=== PATIENT | female | born 1985 | race Caucasian/White ===

== ENCOUNTER → 2020-02-28 13:45 | Outpatient (BNVA) | payer MEDICAID, SELFPAY | PROVIDERS: Visit Provider Psychiatry & Neurology Psychiatry | DX: F43.12 Post-traumatic stress disorder, chronic (principal); F41.1 Generalized anxiety disorder; F33.2 Major depressive disorder, recurrent severe without psychotic features | CPT/HCPCS: 99204 ==

== ENCOUNTER → 2020-04-10 10:04 | Outpatient (BNVA) | payer MEDICAID, SELFPAY | PROVIDERS: Visit Provider Psychiatry & Neurology Psychiatry | DX: F33.2 Major depressive disorder, recurrent severe without psychotic features (principal); F41.1 Generalized anxiety disorder; F43.12 Post-traumatic stress disorder, chronic | CPT/HCPCS: 99213 ==

== ENCOUNTER → 2020-06-24 12:43 | Outpatient (BNVA) | payer MEDICAID, SELFPAY | PROVIDERS: Visit Provider Psychiatry & Neurology Psychiatry | DX: F33.2 Major depressive disorder, recurrent severe without psychotic features (principal); F41.1 Generalized anxiety disorder; F43.12 Post-traumatic stress disorder, chronic | CPT/HCPCS: 99214 ==

== ENCOUNTER → 2020-08-05 15:33 | Outpatient (BNVA) | payer MEDICAID, SELFPAY | PROVIDERS: Visit Provider Psychiatry & Neurology Psychiatry | DX: F33.2 Major depressive disorder, recurrent severe without psychotic features (principal); F41.1 Generalized anxiety disorder; F43.12 Post-traumatic stress disorder, chronic | CPT/HCPCS: 99214 ==

== ENCOUNTER → 2020-11-06 14:44 | Outpatient (BNVA) | payer OTHER, MEDICAID, SELFPAY | PROVIDERS: Visit Provider Psychiatry & Neurology Psychiatry | DX: F33.2 Major depressive disorder, recurrent severe without psychotic features (principal); F41.1 Generalized anxiety disorder; F43.12 Post-traumatic stress disorder, chronic | CPT/HCPCS: 99214 ==

== ENCOUNTER → 2021-09-16 13:13 | Outpatient (BNVA) | payer OTHER, MEDICAID, SELFPAY | PROVIDERS: Visit Provider Counselor Professional | DX: F31.4 Bipolar disorder, current episode depressed, severe, without psychotic features (principal); F41.1 Generalized anxiety disorder; F43.12 Post-traumatic stress disorder, chronic | CPT/HCPCS: 90791 ==

== ENCOUNTER → 2021-10-14 15:10 | Outpatient (BNVA) | payer OTHER, MEDICAID, SELFPAY | PROVIDERS: PCP Nurse Practitioner Family; Visit Provider Registered Nurse | DX: Z79.899 Other long term (current) drug therapy (principal) | CPT/HCPCS: 80053; 82652; 85025 ==

== ENCOUNTER → 2022-04-27 12:47 | Outpatient (BNVA) | payer MEDICAID, SELFPAY | PROVIDERS: PCP Nurse Practitioner Family; Visit Provider Psychiatry & Neurology Neurology | DX: Z79.899 Other long term (current) drug therapy (principal) | CPT/HCPCS: 80061; 83036 ==

== ENCOUNTER 2022-10-12 09:35 | Day surgery (SDC) | payer MEDICAID, SELFPAY ==
[2022-05-13 13:58] VITALS: BP 139/100; BMI 30.4
[2022-09-28 14:01] VITALS: BMI 32.5
[2022-10-12 09:45] VITALS: BP 142/89; PULSE 96; RESP 17; TEMP 36.8; O2SAT 93
[2022-10-12] MEDS: sodium chloride 0.9% 1,000 ML 30 ML IV (09:54)
--- NOTE | 2022-10-12 10:46 | P.HP_ITS ---
Providers/Chief Complaint Primary Care Provider: DARRION West Chief Complaint: Z80.0 History of Present Illness Anthony Vance is a 37 year old female Medications/Allergies Home Medications Medication Instructions Recorded Confirmed Last Taken Type levothyroxine 112 mcg capsule 100 mcg PO DAILY 10/07/21 10/05/22 10/11/22 History cetirizine 10 mg tablet 10 mg PO DAILY PRN Allergic 07/09/22 10/05/22 10/11/22 History Reaction fluticasone propionate 50 1 spray intranasal BID 07/09/22 10/05/22 10/11/22 History mcg/actuation nasal spray,suspension budesonide-formoterol HFA 160 2 puff inhalation BID 09/14/22 10/05/22 10/11/22 History mcg-4.5 mcg/actuation aerosol inhaler (Symbicort) multivitamin with minerals-folic 1 tab PO DAILY 09/14/22 10/05/22 10/11/22 History acid 120 mcg chewable tablet (Centrum Adult 50 Plus Fresh-Fruity) ondansetron 8 mg disintegrating 8 mg PO Q8H PRN nausea and 09/30/22 10/05/22 10/11/22 Rx tablet vomiting #20 tabs bupropion HCl 100 mg tablet,12 hr 100 mg PO QAM #30 tabs 10/05/22 10/05/22 10/11/22 Rx sustained-release Allergies Allergy/AdvReac Type Severity Reaction Status Date / Time cefaclor [From Ceclor] Allergy Unknown unknown Verified 07/26/22 15:46 pseudoephedrine AdvReac Intermediate heart Verified 07/26/22 15:46 [From Sudafed] palpitations PFSH Acute PFSH: Medical History Acute anxiety Adverse drug effect Allergies Depression Insomnia Psychiatric care Thyroid cancer Surgical History H/O thyroidectomy History of hysterectomy History of tonsillectomy and adenoidectomy Family History Grandfather Cancer Family/Other Cancer Mother Cancer colon and ovarian Family/Other CAD (coronary artery disease) Social History Smoking and tobacco status: never smoked Second hand smoke exposure: No Alcohol intake: never Substance/Drug Use: never Adopted: No Caregiver/support person: No Lives independently: Yes Household members: spouse and children Housing: House Marital status: Number of children: 3 Highest education level completed: GED or Equivalent service: No Current occupational status: unemployed Current occupational exposures/hazards: No Pets and animals: Yes Pets & animals: cat(s), dog(s), fish and farm animals Farm Animals: chicken/turkey/other poultry Pets & animal details: rat, ducks Leisure activites: art, hunting, fishing and other Leisure activities details: make soap, drawing Sexually active: Yes Do you think of yourself as: Straight/Heterosexual Current gender identity: Female Antonia/Congregational: Orthodox Special antonia needs: No Agree to transfusion: Yes Financial difficulty paying for basics: Not Very Hard Female Reproductive History: Para: 3 Spontaneous abortions: No Vitals/I&O/Wt Last Vital Signs Temp 98.2 F 10/12/22 09:45 Pulse 96 10/12/22 09:45 Resp 17 10/12/22 09:45 BP 142/89 10/12/22 09:45 Pulse Ox 93 10/12/22 09:45 O2 Del Method Room Air 10/12/22 09:45 A&P Assessment and plan (1) Family history of colon cancer: Plan Colonoscopy Attestations Medical Necessity Statement*: Home Coding Level of Care Code Acute Code for Chg Fwd Diagnoses Family history of colon cancer Z80.0
[2022-10-12 11:11] VITALS: BP 106/77; PULSE 69; RESP 12; TEMP 36.2; O2SAT 96
[2022-10-12 11:21] VITALS: BP 121/83; PULSE 80; RESP 16; TEMP 36.2; O2SAT 95
--- NOTE | 2022-10-12 11:30 | ANE.PACU2 ---
Inpatient post-anesthesia follow up: Airway intact: Yes Vital signs: Temperature 97.2 F Pulse Rate 80 Respiratory Rate 16 Blood Pressure 121/83 Pulse Oximetry 95 Oxygen Delivery Me thod Room Air Oxygen Flow Rate Fraction of Inspir ed Oxygen Hydration adequate: Yes Nausea and vomiting: No Pain level: 1 Mental status: Baseline
== END 2022-10-12 11:40 | disposition home or self-care (01) ==
PROVIDERS: PCP Nurse Practitioner Family; Visit Provider Surgery
PROC: 0DJD8ZZ Inspection of Lower Intestinal Tract, Via Natural or Artificial Opening Endoscopic (ICD-10-PCS; CPT 45378; principal; 2022-10-12 09:30)
DX: D12.5 Benign neoplasm of sigmoid colon (principal); Z80.0 Family history of malignant neoplasm of digestive organs; K64.8 Other hemorrhoids; K52.9 Noninfective gastroenteritis and colitis, unspecified
CPT/HCPCS: 45380; 45385; 88305; J2704; J7030

== ENCOUNTER → 2023-05-10 11:41 | Outpatient (BNVA) | payer MEDICAID, SELFPAY ==
[2022-05-13 13:58] VITALS: BP 139/100; BMI 30.4
== END ==
PROVIDERS: PCP Nurse Practitioner Family; Referring Provider Psychiatry & Neurology Psychiatry; Visit Provider Psychiatry & Neurology Psychiatry
DX: Z79.899 Other long term (current) drug therapy (principal)
CPT/HCPCS: 80061; 85025

== ENCOUNTER → 2023-08-31 13:34 | Outpatient (BNVA) | payer SELFPAY ==
[2023-06-13 13:08] VITALS: BP 134/103; BMI 33.3
== END ==
PROVIDERS: PCP Nurse Practitioner Family; Referring Provider Psychiatry & Neurology Psychiatry; Visit Provider Psychiatry & Neurology Psychiatry
DX: Z79.899 Other long term (current) drug therapy (principal)
CPT/HCPCS: 80061; 83036

== ENCOUNTER → 2024-08-02 09:20 | Outpatient (BNVA) | payer MEDICAID, SELFPAY ==
[2023-09-06 14:37] VITALS: BP 125/80; BMI 33.2
== END ==
PROVIDERS: PCP Nurse Practitioner Family; Referring Provider Nurse Practitioner Family; Visit Provider Internal Medicine
DX: E03.9 Hypothyroidism, unspecified (principal); E07.9 Disorder of thyroid, unspecified; C73 Malignant neoplasm of thyroid gland
CPT/HCPCS: 99204

== ENCOUNTER 2024-08-16 11:42 | Outpatient (CLI) | payer MEDICAID, SELFPAY ==
[2023-09-06 14:37] VITALS: BP 125/80; BMI 33.2
--- NOTE | 2024-08-16 11:45 | USR_ITS ---
PROCEDURE INFORMATION: Exam: US Soft Tissue Head and Neck, Thyroid Exam date and time: 08/16/2024 11:52 AM Age: 39 years old Clinical indication: Condition or disease; Thyroid disorder; Other: Thyroid dysfunction; Prior surgery; Surgery date: 6+ months; Additional info: History of thyroid surgery and thyroid dysfunction, TECHNIQUE: Imaging protocol: Real-time ultrasound scan of the neck with image documentation. Exam focused on the thyroid. COMPARISON: No relevant prior studies available. FINDINGS: Right thyroid lobe: Surgically absent. Left thyroid lobe: Surgically absent. Isthmus: Surgically absent. Salivary glands: Bilateral submandibular glands appear homogeneous and within normal limits. Lymph nodes: No cervical lymphadenopathy identified. US/US thyroid [id number] IMPRESSION: Status post total thyroidectomy with no abnormal findings in the surgical bed.
== END 2024-08-16 11:43 | disposition home or self-care (01) ==
LOC: RAD 11:43
PROVIDERS: PCP Nurse Practitioner Family; Visit Provider Internal Medicine
DX: E07.9 Disorder of thyroid, unspecified (principal); Z98.890 Other specified postprocedural states
CPT/HCPCS: 76536

== ENCOUNTER 2024-10-30 09:58 | Outpatient (CLI) | payer MEDICAID, SELFPAY ==
[2023-09-06 14:37] VITALS: BP 125/80; BMI 33.2
--- NOTE | 2024-10-30 10:00 | MM_ITS ---
WS: [id number] BILATERAL SCREENING DIGITAL TOMOSYNTHESIS MAMMOGRAM WITH CAD HISTORY: SCREENING COMPARISON: None available. Bilateral CC and MLO views with tomosynthesis and synthetic mammography submitted. Computer aided detection analyzed. Breast composition: There are scattered areas of fibroglandular density. No suspicious masses, microcalcifications or architectural distortion. MM/MM scr BI tomosynthesis [id number] IMPRESSION: BI-RADS: 1 - Negative. FOLLOW UP: 1 Year Follow-up
== END 2024-10-30 09:59 | disposition home or self-care (01) ==
PROVIDERS: PCP Nurse Practitioner Family; Visit Provider Nurse Practitioner Family
DX: Z12.31 Encounter for screening mammogram for malignant neoplasm of breast (principal); R92.323 Mammographic fibroglandular density, bilateral breasts
CPT/HCPCS: 77063; 77067

== ENCOUNTER → 2024-11-08 10:46 | Outpatient (BNVA) | payer MEDICAID, SELFPAY ==
[2023-09-06 14:37] VITALS: BP 125/80; BMI 33.2
== END ==
PROVIDERS: PCP Nurse Practitioner Family; Visit Provider Internal Medicine
DX: C73 Malignant neoplasm of thyroid gland (principal)
CPT/HCPCS: 84432; 86800